=== PATIENT | female | born 1995 | race Caucasian/White ===

== ENCOUNTER 2016-05-30 13:49 | Emergency (ER) | payer OTHER ==
--- NOTE | ~2016-05-30 | US98 ---
[facility] A Service of [facility] & [facility] RADIOLOGY TEXT RESULTS PATIENT: EDIE TAY LOCATION: CFTX : 93 UNIT #: [id number] AGE: [address]: Mary Antonio APRN SEX: F ORDER DR: [id number] [facility] [address] [place], [place] [address] [id number] E MR#: [id number] Acc #: [id number] NAME: EDIE TAY : 1995 SEX: F STUDY DATE/TIME: 05/30/2016 14:28 UNIT: [facility] ROOM: STUDY DESCRIPTION: US Pelvic Non-OB Complete Attending Physician: Mary Antonio A.P.R.N. Ordering Physician: Ed Eduardo Hernandez M.D. Primary Care Physician: Primary Care Physician No MEDICAL IMAGING REPORT This report is preliminary unless electronic signature is present EXAM Pelvic ultrasound, 05/30/2016 INDICATIONS Left lower quadrant pain for 4 days. The patient is 4 months, last normal menstrual period was April 03, 2016. TECHNIQUE Mike-scale, color Doppler, and spectral Doppler waveform analysis was performed through the pelvis transvaginally. The uterus measures 5.2 cm x 2.9 cm x 4.7 cm. It is homogeneous in echotexture. Endometrium measures about 4 mm in thickness which is within normal limits. Bilateral ovarian cysts are noted. These are simple in appearance and normal color Doppler flow is seen within both ovaries. Patient does have a small amount of free fluid within the pelvis. IMPRESSION 1. Normal appearance to the patient's uterus. It is homogeneous in echotexture and the endometrium measures within normal size limits. 2. Bilateral ovarian cysts. 3. Small amount of free fluid is seen within the pelvis which certainly can be physiologic finding in a 21-year-old woman. Dictated by... Debora Ramirez M.D. THIS IS AN ELECTRONICALLY VERIFIED REPORT Debora Ramirez M.D. at 05/31/2016 4:33 PM AFF/ljd TD: 05/31/2016 00:25 [facility] A Service of [facility] & [facility] RADIOLOGY TEXT RESULTS PATIENT: EDIE TAY LOCATION: [facility] : 93 UNIT #: [id number] AGE: [address]: Mary Antonio APRN SEX: F ORDER DR: JOB #: [id number] MEDICAL IMAGING REPORT Page 1 of 1 COPY
[2016-05-30 13:19] LABS: URINE SOURCE CLEAN CATCH
[2016-05-30 13:24] LABS: URINE APPEARANCE CLEAR; URINE BILIRUBIN NEG (NEG); URINE BLOOD NEG (NEG); URINE COLOR YELLOW; URINE GLUCOSE NEG (NEG); URINE KETONE NEG (NEG); URINE LEUKOCYTE ESTERASE NEG (NEG); URINE NITRATE NEG (NEG); URINE PROTEIN NEG (NEG); URINE SPECIFIC GRAVITY 1.014 (1.003-1.035)
[2016-05-30 13:36] LABS: CULTURE INDICATED? NO
[~2016-05-30 13:49] MED LIST: HYDROCORTISONE15 G1 TP; KEFLEX PO; NO MEDICATIONS; PRENATAL1 TA1 PO; VICODIN 5/1 TAB 5/50 PO; ZOFRAN
[2016-06-01 00:22] LABS: CHLAMYDIA TRACH Not Detected (Not Detected); N GONOR Not Detected (Not Detected)
== END 2016-05-30 15:30 | disposition home or self-care (01) ==
LOC: CFTX 13:49
PROVIDERS: Nurse Practitioner
DX: N83.202 Unspecified ovarian cyst, left side (principal); N83.201 Unspecified ovarian cyst, right side; N72 Inflammatory disease of cervix uteri; J45.909 Unspecified asthma, uncomplicated; F41.9 Anxiety disorder, unspecified; F17.210 Nicotine dependence, cigarettes, uncomplicated; Z79.899 Other long term (current) drug therapy
CPT/HCPCS: 76830; 76856; 81003; 84703; 87491; 87591; 87808; 87905; 99284